=== PATIENT | female | born 1995 | race Caucasian/White ===

== ENCOUNTER → 2017-05-29 13:12 | Outpatient (CLI) | payer MEDICAID, SELFPAY ==
[2017-06-07 09:29] LABS: HPV HC, High Risk Positive (Negative); HPV Reflexed? YES, CHARGE PATIENT
== END ==
PROVIDERS: Visit Provider Obstetrics & Gynecology
DX: Z12.4 Encounter for screening for malignant neoplasm of cervix (principal)
CPT/HCPCS: 87624; 88175; G0145

== ENCOUNTER → 2017-07-10 16:47 | Outpatient (CLI) | payer MEDICAID, SELFPAY ==
--- NOTE | 2017-07-10 | IMM_PTH ---
PATIENT: BLANCA BURRELL LOC: [facility] U#:[id number] AGE/SX: 29/F ROOM: RE07/10/[address]: Dr. Cortes Eldridge MD : 1995 BED: DIS: SPEC #: [id number] RECD: 07/12/17 11:07 STATUS: PIERRE PING #: [id number] EMEKA: 07/10/17 00:[address]: Cortes Eldridge DEPT: IMMUNOHISTOCHEMISTRY RECD BY: Carli Davis ENTERED: 07/12/17 11:08 SP TYPE: IMMUNO OTHR DR: No Primary Care Phys Tissues: A - Uterine cervix, NOS B - Endocervical Procedures: p16 (initial) KI-67 (add) PHYSICIAN & INSTITUTION [place] [id number] SPECIMEN INFORMATION: Tissue Source: A ? Cervix at 12 o?clock, B - ECC Clinical Info: ASCUS, HPV-HR positive Specimen Number: [id number] A & B CPT code: 10956 x2, 68528 x2 METHODOLOGY: Deparaffinized sections of prefer/formalin-fixed tissue or PAP/DQ stained slides are incubated with monoclonal/polyclonal antibodies/oligonucleotide probes. Localization is made via biotin free immunoperoxidase method. Appropriate controls are performed and reacted as expected. Results on target cell population are indicated in the following table: RESULTS: ANTIBODY / CLONE RESULT Block A P16 (E6H4) positive, focal and patchy Ki-67 (30-9) positive, low Block B P16 (E6H4) positive, focal and patchy Ki-67 (30-9) negative These tests were developed and their performance characteristics determined by [facility]. They may not have been cleared or approved by the U.S. Food and Drug Administration. The FDA has determined that such clearance or approval is not necessary. INTERPRETATION: A. Cervix at 12 o?clock, biopsy: Focal changes suspicious for HPV cytopathic effects. B. ECC: Detached and unoriented fragments of squamous epithelium with focal minimal changes suspicious for HPV cytopathic effects. SJ:murali 07/13/17
--- NOTE | 2017-07-10 15:40 | CER_PTH ---
PATIENT: BLANCA BURRELL LOC: [facility]#:[id number] AGE/SX: 29/F ROOM: RE07/10/[address]: Dr. Cortes Eldridge MD : 1995 BED: DIS: SPEC #: [id number] RECD: 07/10/17 16:07 STATUS: PIERRE PING #: [id number] EMEKA: 07/10/17 15:[address]: Cortes Eldridge DEPT: SURGICAL PATHOLOGY RECD BY: Ramo Tolentino Tissues: A - Uterine cervix, NOS B - Endocervical Procedures: Surgery Specimen Level IV HEADER OPERATION: Colposcopy PRE-OP DIAGNOSIS: ASCUS pap, HPV-HR positive 05/29/17 TISSUE SUBMITTED: A. Cervical biopsy at 12 o?clock, B. ECC MICROSCOPIC DIAGNOSIS A. Cervix, 12 o?clock, biopsy: Focal changes suspicious for HPV cytopathic effects. Chronic inflammation and squamous metaplasia. B. ECC: Detached unoriented fragments of squamous epithelium with minimal changes suspicious for HPV cytopathic effects. Fragments of benign endocervical epithelium, blood and mucous. SJ:murali 07/12/17 COMMENT A & B. Immunohistochemistry ([id number]) for surrogate HPV marker (p16) supports the above diagnosis. MICROSCOPIC DESCRIPTION Slides are reviewed. GROSS DESCRIPTION A - Received in fixative is one container labeled with the patient's name and designated cervical biopsy at 12 o'clock. The specimen consists of multiple irregular fragments of light yoon soft tissue that in aggregate measure 0.6 x 0.6 x 0.1 cm. The specimen is totally submitted in one cassette. B - Received in fixative is one container labeled with the patient's name and designated ECC. The specimen consists of multiple irregular fragments of yoon soft tissue that in aggregate measure 1 x 0.5 x <0.1 cm. The specimen is totally submitted in one cassette. / AM:murali 07/11/17 TC:5 CPT: 50760 x2
== END ==
PROVIDERS: Visit Provider Obstetrics & Gynecology
DX: R87.610 Atypical squamous cells of undetermined significance on cytologic smear of cervix (ASC-US) (principal); R87.810 Cervical high risk human papillomavirus (HPV) DNA test positive
CPT/HCPCS: 88305; 88341; 88342

== ENCOUNTER → 2017-08-29 17:57 | Outpatient (CLI) | payer MEDICAID, SELFPAY ==
[2017-08-29 19:54] LABS: Chlamydia Trachomatis by PCR Negative (Negative); Neisserai gonorrhoeae by PCR Negative (Negative); Probe Check PASS; Sample Adequacy Control PASS; Specimen Processing Control PASS
== END ==
PROVIDERS: Visit Provider Obstetrics & Gynecology
DX: Z11.3 Encounter for screening for infections with a predominantly sexual mode of transmission (principal)
CPT/HCPCS: 87491; 87591

== ENCOUNTER 2018-03-18 22:50 | Emergency (ER) | payer SELFPAY ==
[2018-03-18 22:50] VITALS: BP 135/77; PULSE 100; RESP 16; TEMP 36.4; O2SAT 98; BMI 27.6
[2018-03-18 23:14] LABS: Red Blood Cells-Urine 0 SEEN /hpf (0-5); White Blood Cells 0 SEEN /hpf (0-5)
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
[2018-03-18 23:26] LABS: Color, Urine Yellow (Yellow); Glucose, Dipstick Normal (Normal); Ketone-Dipstick Negative (Negative); Leukocyte Esterase-Dipstick Negative /ul (Negative); Nitrite-Dipstick Negative (Negative); Occult Blood-Urine Negative /ul (Negative); Protein-Dipstick 30 mg/dl (Negative); Specific Gravity, Urine 1.025 (1.002-1.030); Urine Bilirubin Dipstick Negative (Negative); Urine Clarity Clear (Clear); Urine Urobilinogen 1 mg/dl (Normal)
[2018-03-18 23:44] LABS: Bacteria RARE /hpf (None Seen); Mucous, Urine 1+ /hpf (<or=2+); Squamous Epithelial Cells - UA 0-5 SEEN /hpf (5-10)
[2018-03-18 23:46] LABS: Internal QC Validated? YES +Cl - CLEAR BKGD
--- NOTE | 2018-03-18 23:47 | NURSING ---
dr rudd aware urine preg results
[2018-03-18 23:48] LABS: Pregnancy, Urine Positive Negative
[2018-03-18 23:59] VITALS: BP 123/78; PULSE 93; RESP 17; O2SAT 100
--- OUTSIDE RECORDS SUMMARY | 2018-04-30 17:44 | XMS RPT_ITS ---
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 Repository ED CT) NG/[id number] NO KNOWN [place] [address](SNOMED ALLERGIES Health [facility] CT) Repository Drug NO KNOWN [facility] Class/42424 ALLERGIES [address] [place] 1003(SNOMED Repository CT) ENCOUNTERS ENCOUNTERS ADMIT/DISCHARGE ACCOUNT NUMBER ADMITTING ENCOUNTER LOCATION SOURCE CLASS 03/28/2018 [id number] Ambulatory [facility] ding:LABSPEC Repository 03/27/2018/03/28/20 [id number] Emergency [address] ding:ED Repository 03/18/2018/03/19/20 [id number] Emergency [address] ding:ED Repository 01/07/2018/01/08/20 [id number] Emergency [address] Other [place] Repository 01/07/2018/01/08/20 [id number] Emergency [address] System MEDICAL Repository CENTERBuildi ng:AKEDSRoom : EDBed: 05 01/04/2018/01/06/20 [id number] MEN, Ambulatory Building:EDR [address] oom: [place] HDEPYH05Rlh: Hospital EDBED08 Repository 10/12/2017/10/13/19 [id number] ROBSON, Ambulatory Building:[place] [address] JOEY E chapis: [place] UUCAOS63Coc: Hospital EDBED12 Repository 08/29/2017 [id number] Ambulatory [facility] ding:LABSPEC Repository 07/10/2017 [id number] Ambulatory [facility] ding:LABSPEC Repository 05/29/2017 [id number] Ambulatory [facility] ding:LABSPEC Repository 04/25/2017/04/27/19 [id number] Ambulatory [address] Repository 04/20/2017/04/20/20 [id number] Misael PLUMMER [address] lding:EDRoom Hospital : Repository [id number]: EDBED07 PAYERS PAYERS ENCOUNTER GUARANTOR PAYER SUBSCRIBER SOURCE 03/28/2018 Blanca D Primary Blanca D Maryann [id number] Insurance:CARESOURCEP GrooverDOB: [facility] Number: [id number] [id number] Repository 254[address]Sjz: 330) Date:2018-03-28P O [phone] () [address]ATTN: [place] [address]BL: 03/28/2018 Secondary NOT GIVENUNK Maryann Insurance:SELF PAY [facility] Number: Effective Repository Date:2018-03-28 03/27/2018 Blanca D Primary Blanca D Maryann [id number] Insurance:CARESOURCEP [facility] Number: [id number], [place] [id number] Repository [address]Sda: (330) Date:2018-03-27P O [phone] () [address]ATTN: [place] [address]WH: 03/27/2018 Secondary NOT GIVENUNK Maryann Insurance:SELF PAY [facility] Number: Effective Repository Date:2018-03-27 03/18/2018 Blanca D Primary NOT GIVENUNK [place] [id number] Insurance:SELF PAY [facility] RDCUY[place] Number: Effective Repository [place] Date:2018-03-18 678[address]Thv: () 01/07/2018 BLANCA D Primary BLANCA D [facility] GROOVERDOB: Insurance:CARESOURCE GROOVERDOB: Health System MEDICAIDPolicy [id number] Repository [place] Number: [place] LAS, [id number] [place] [address]Kng: Date: () 01/04/2018 [facility] Insurance:CARESOURCE GROOVERDOB: [facility] CFCPolicy Number: [id number] Repository [place] [id number] 9 [place] Date:[id number] [place] [id number], [place] [address]Soa: [phone]: [phone]: (HP) [phone] (HP) (WP) 10/12/2017 BLANCA Primary [facility] GROOVERDOB: Insurance:CARESOURCE GROOVERDOB: Hospital CFCPolicy Number: [id number] Repository [place] [id number] 9 [place] [place] Date:0276-66-16[place] [address], [place] [address]Mnk: [phone]: [phone]: (HP) [phone] () (WP) 08/29/2017 Blanca D Primary Blanca D Maryann [id number] Insurance:CARESOURCEP GrooverDOB: [facility] Number: [id number] [facility] RDCUYAHOG [id number] Repository [place] Date:2017-08-29 O [address]Vko: (330) [address]ATTN: CLAIMS [phone] (HP) [place] [address]FN: 08/29/2017 Secondary NOT GIVENUNK [place] Insurance:SELF PAY [facility] Number: Effective Repository Date:2017-08-29 07/10/2017 Blanca D Primary Blanca D Maryann [id number] Insurance:CARESOURCEP GrooverDOB: [facility] Number: [id number] [facility] [id number] Repository [place] Date:2017-07-10P O [address]Buz: (330) [address]ATTN: CLAIMS [phone] (HP) [place] [address]PS: 07/10/2017 Secondary NOT GIVENUNK Maryann Insurance:SELF PAY [facility] Number: Effective Repository Date:2017-07-10 05/29/2017 Blanca D Primary Blanca D [place] [id number] Insurance:CARESOURCEP GrooverDOB: [facility] Number: [id number] [facility] [id number] [place] Date:2017-05-29P O [address]Psf: (330) [address]ATTN: CLAIMS [phone] (HP) [place] [address]XG: 05/29/2017 Secondary NOT GIVENUNK [place] Insurance:SELF PAY [facility] Number: Effective Repository Date:2017-05-29 04/20/2017 BLANCA Primary BLANCA [place] GROOVERDOB: Insurance:CARESOURCE GROOVERDOB: Hospital CFCPolicy Number: [id number] [facility] [id number] [address] [facility] Date:[id number] [address] [place], [place] [address], [place] [address]Wwe: [phone]: [phone]: (HP) [phone] () (WP)
== END 2018-03-19 | disposition home or self-care (01) ==
LOC: ED 23:20
PROVIDERS: Emergency Provider Emergency Medicine
DX: O26.891 Other specified pregnancy related conditions, first trimester (principal); Z3A.01 Less than 8 weeks gestation of pregnancy; Y04.2XXA Assault by strike against or bumped into by another person, initial encounter; Y93.89 Activity, other specified; Y92.89 Other specified places as the place of occurrence of the external cause; Y99.8 Other external cause status
CPT/HCPCS: 81001; 81025; 99282

== ENCOUNTER 2018-03-27 21:58 | Emergency (ER) | payer MEDICAID, SELFPAY ==
[2018-03-27 22:00] VITALS: BP 132/81; PULSE 96; RESP 20; TEMP 36.8; O2SAT 97; BMI 26.6
--- NOTE | 2018-03-27 22:09 | US_ITS ---
STUDY: FIRST TRIMESTER OBSTETRICAL ULTRASOUND REASON FOR EXAM: Female, 22 years old. Pelvic pain. Early . LMP: 01/28/2018 TECHNIQUE: Transvaginal TECHNICAL QUALITY: Adequate. PRIOR ULTRASOUND: None. FINDINGS: There is visualization of a single gestational sac in a normal intrauterine position. The mean sac diameter (MSD) measures 2.4 cm, indicating an estimated gestational age (EGA) of 7 weeks, 4 days. The gestational sac shape is within normal limits. There is a visualized yolk sac. The yolk sac measures 3.5 mm. The placenta is non-visualized. There is visualization of a live embryo. The crown-rump length (CRL) measures 7.4 mm, indicating an estimated gestational age (EGA) of 6 weeks, 5 days. There is demonstrated cardiac activity with a heart rate of 120 bpm. The estimated gestation age (EGA) by LMP is 8 weeks, 2 days. The estimated date of delivery (ZURDO) by LMP is 11/04/2018. The estimated gestation age (EGA) by US is 7 weeks, 1 days. The estimated date of delivery (ZURDO) by US is 11/12/2018. The uterus measures 8.8 x 7.1 x 4.6 cm. There is no demonstrated uterine fibroid. The cervix is closed. The right ovary measures 2.9 x 1.6 x 1.8 cm. There is no right ovarian cyst. There is no visualized right adnexal mass or complex lesion. The left ovary measures 3.2 x 2.8 x 2.6 cm. There is no left ovarian cyst. There is no visualized left adnexal mass or complex lesion. There is minimal fluid in the cul de sac. US/Transvaginal w/Preg US IMPRESSION: There is a single live intrauterine gestation with average ultrasound EGA of 7 weeks 1 day, and no evidence for complication. Electronically Signed: Leobardo Clay MD at 23:29 EST , Service support ,
[2018-03-27 22:37] LABS: Absolute Lymphocyte Count 3.22 X10^3/ul (0.83-4.51); Absolute Neutrophil Count 7.1 X10^3/uL (2.0-7.7); Basophil# 0.01 X10^3/uL; Basophil% 0.1 % (0-1); Eosinophils% 0.9 % (0-5); Hematocrit 37.2 % (37-47); Hemoglobin 12.7 g/dl (12.0-15.0); Lymphocyte # 3.22 X10^3/ul (4.0); Lymphocyte % 28.7 % (19-41); Mean Corp Hgb Conc 34.1 g/gl (32-36); Mean Corpuscular Hgb 30.5 pg (27.0-32.0); Mean Corpuscular Volume 89.4 fL (81-99); Mean Platelet Vol. 8.9 fl (6.2-12.0); Monocyte# 0.74 X10^3/uL; Monocyte% 6.6 % (0-10); Neutrophil # 7.12 X10^3/uL (2.7-7.7); Neutrophil % 63.5 % (47-70); Platelet Count 241 K/mm3 (150-450); RBC Distribution Width CV 12.6 % (11.6-14.6); RBC Distribution Width SD 40.6 fl (35.1-43.9); Red Blood Count 4.16 M/mm3 (4.2-5.4); White Blood Count 11.2 K/mm3 (4.4-11.0)
--- NOTE | 2018-03-27 22:38 | ED.VISSUMM ---
- ER Visit Summary Date of Service: 03/27/18 Chief Complaint: [] Pelvic pain today 6 weeks History of Present Illness: The patient is a 22 F [] she reports she is 6 weeks she was seen in the emergency department about 2 weeks ago for abdominal pain she had found to be had pelvic ultrasound that showed IUP by her history, today she was in usual state of health when she suddenly had extreme pelvic pain no vaginal bleeding no UTI symptoms normal bowel bladder habits no fever no cough no vomiting, this is her second she is She has no other complaints and assures me she did not injure her body or do anything to cause the pain Physical Examination: [] 132/8196 afebrile General, no distress resting comfortably HEENT is generally unremarkable The neck is supple no adenopathy Cardiovascular, regular rate and rhythm Lungs, clear bilateral Abdomen, soft she complains of pain to the pelvic area bilaterally there is no rebound guarding or megaly Extremities, no clubbing cyanosis or edema Neurologic, awake alert answering questions appropriately moving all 4 extremities Sudden onset of pelvic pain reportedly screening labs pelvic ultrasound The patient is feeling much better without any specific therapy other than fluids, her screening labs are generally unremarkable her UA showed no white cells urine culture sent, her pelvic ultrasound and quant hCG are pending, but she is feeling better and she wants to go home she has an appointment see her paper winder tomorrow at this time I will have the evening physicians check the ultrasound and hCG quant as long as these are within normal range and showed nothing acute such as ectopic the plan will be discharged home to follow-up with her paper winder as scheduled tomorrow Test Results: [] Emergency Department Course and Treatment: [] Treatment Plan: [] Disposition: [] Pending ultrasound and hCG quant Impression: [] Pelvic pain improved to resolve, history of This note was generated with [employer] dictation software. It may contain incorrect words, spelling, and punctuation that were not noted in review of the chart prior to signing ED Disposition - Plan for ED Patient: Chief Complaint: Referrals: Care Physician,No Primary [Primary Care Provider] -
[2018-03-27 22:40] LABS: POSITIVE COUNT NO; POSITIVE DIFFERENTIAL NO; POSITIVE MORPHOLOGY NO
[2018-03-27] MEDS: 0.9% Normal Saline 1,000 ML 1000 ML IV (22:40)
--- NOTE | 2018-03-27 22:42 | ED.DCSUM_ITS ---
- ER Visit Summary Date of Service: 03/27/18 Chief Complaint: [] Pelvic pain today 6 weeks History of Present Illness: The patient is a 22 F [] she reports she is 6 weeks she was seen in the emergency department about 2 weeks ago for abdominal pain she had found to be had pelvic ultrasound that showed IUP by her history, today she was in usual state of health when she suddenly had extreme pelvic pain no vaginal bleeding no UTI symptoms normal bowel bladder habits no fever no cough no vomiting, this is her second she is She has no other complaints and assures me she did not injure her body or do anything to cause the pain Physical Examination: [] 132/8196 afebrile General, no distress resting comfortably HEENT is generally unremarkable The neck is supple no adenopathy Cardiovascular, regular rate and rhythm Lungs, clear bilateral Abdomen, soft she complains of pain to the pelvic area bilaterally there is no rebound guarding or megaly Extremities, no clubbing cyanosis or edema Neurologic, awake alert answering questions appropriately moving all 4 extremities Sudden onset of pelvic pain reportedly screening labs pelvic ultrasound The patient is feeling much better without any specific therapy other than fluids, her screening labs are generally unremarkable her UA showed no white cells urine culture sent, her pelvic ultrasound and quant hCG are pending, but she is feeling better and she wants to go home she has an appointment see her metal room dental technician tomorrow at this time I will have the evening physicians check the ultrasound and hCG quant as long as these are within normal range and showed nothing acute such as ectopic the plan will be discharged home to follow-up with her metal room dental technician as scheduled tomorrow Test Results: [] Emergency Department Course and Treatment: [] Treatment Plan: [] Disposition: [] Pending ultrasound and hCG quant Impression: [] Pelvic pain improved to resolve, history of This note was generated with [employer] dictation software. It may contain incorrect words, spelling, and punctuation that were not noted in review of the chart prior to signing ED Disposition - Plan for ED Patient: Chief Complaint: Referrals: Care Physician,No Primary [Primary Care Provider] -
[2018-03-27 22:57] LABS: Bacteria 0 SEEN /hpf (None Seen); White Blood Cells 0 SEEN /hpf (0-5)
[2018-03-27 23:01] LABS: Color, Urine Yellow (Yellow); Glucose, Dipstick Normal (Normal); Ketone-Dipstick 5 mg/dl (Negative); Leukocyte Esterase-Dipstick Negative /ul (Negative); Nitrite-Dipstick Positive (Negative); Occult Blood-Urine Negative /ul (Negative); Protein-Dipstick 15 mg/dl (Negative); Specific Gravity, Urine 1.025 (1.002-1.030); Urine Bilirubin Dipstick Negative (Negative); Urine Clarity Clear (Clear); Urine Urobilinogen Normal (Normal)
[2018-03-27 23:07] LABS: Red Blood Cells-Urine 0-5 SEEN /hpf (0-5)
[2018-03-27 23:08] LABS: Mucous, Urine 2+ /hpf (<or=2+); Squamous Epithelial Cells - UA 0-5 SEEN /hpf (5-10)
--- NOTE | 2018-03-27 23:25 | ED.DEP ---
ED Disposition - Plan for ED Patient: Chief Complaint: Instructions: ED Abdominal Pain Rule Out Ectopic Referrals: Care Physician,No Primary [Primary Care Provider] - Additional Instructions: Follow-up with your postdoctoral fellow tomorrow return for change in symptoms
[2018-03-27 23:44] LABS: Anion Gap 6 (5-15); BUN 10 mg/dL (7-18); BUN/Creat Ratio 16.5 RATIO (10-20); Calcium,Total 8.5 mg/dL (8.5-10.1); Chloride 107 mmol/L (98-107); Creatinine, Serum 0.61 mg/dL (0.55-1.02); EST Glomerular Filtration Rate 128 mL/min (>60); Est Glom Filt Rate - Afr Amer 155 mL/min (>60); Glucose 110 mg/dL (74-106); Potassium 3.2 mmol/L (3.5-5.1); Sodium Level 139 mmol/L (136-145)
[2018-03-28 00:30] VITALS: BP 127/87; PULSE 70; RESP 18; O2SAT 97
== END 2018-03-28 00:56 | disposition home or self-care (01) ==
PROVIDERS: Emergency Medicine; Emergency Provider Emergency Medicine
DX: O26.891 Other specified pregnancy related conditions, first trimester (principal); R10.2 Pelvic and perineal pain; Z3A.01 Less than 8 weeks gestation of pregnancy
CPT/HCPCS: 76817; 80048; 81001; 84702; 85025; 86900; 87086; 87088; 96360; 96361; 99283; J7030; A4216

== ENCOUNTER → 2018-03-28 19:53 | Outpatient (CLI) | payer MEDICAID, SELFPAY ==
[2018-03-27 22:00] VITALS: BMI 26.6
[2018-03-28 21:52] LABS: Chlamydia Trachomatis by PCR Negative (Negative); Neisserai gonorrhoeae by PCR Negative (Negative); Probe Check PASS; Sample Adequacy Control PASS; Specimen Processing Control PASS
[2018-04-05 12:29] LABS: HPV HC, High Risk Positive (Negative); HPV Reflexed? YES, CHARGE PATIENT
== END ==
PROVIDERS: Referring Provider Obstetrics & Gynecology; Visit Provider Obstetrics & Gynecology
DX: Z12.4 Encounter for screening for malignant neoplasm of cervix (principal); Z11.3 Encounter for screening for infections with a predominantly sexual mode of transmission
CPT/HCPCS: 87491; 87591; 87624; 88175; G0145

== ENCOUNTER → 2018-04-10 15:22 | Outpatient (CLI) | payer MEDICAID, SELFPAY ==
[2018-03-27 22:00] VITALS: BMI 26.6
[2018-04-10 18:02] LABS: Color, Urine Yellow (Yellow); Glucose, Dipstick Normal (Normal); Ketone-Dipstick 5 mg/dl (Negative); Leukocyte Esterase-Dipstick 25 /ul (Negative); Nitrite-Dipstick Negative (Negative); Occult Blood-Urine Negative /ul (Negative); Protein-Dipstick Negative (Negative); Urine Bilirubin Dipstick Negative (Negative); Urine Clarity Clear (Clear); Urine Urobilinogen Normal (Normal)
[2018-04-10 18:10] LABS: COTININE Drug Screen Positive (<200 ng/mL)
[2018-04-10 18:13] LABS: Absolute Lymphocyte Count 1.67 X10^3/ul (0.83-4.51); Absolute Neutrophil Count 4.7 X10^3/uL (2.0-7.7); Basophil# 0.01 X10^3/uL; Basophil% 0.1 % (0-1); Eosinophil# 0.17 X10^3/uL; Eosinophils% 2.4 % (0-5); Hematocrit 39.2 % (37-47); Hemoglobin 13.4 g/dl (12.0-15.0); Lymphocyte # 1.67 X10^3/ul (4.0); Lymphocyte % 23.1 % (19-41); Mean Corp Hgb Conc 34.2 g/gl (32-36); Mean Corpuscular Hgb 30.6 pg (27.0-32.0); Mean Corpuscular Volume 89.5 fL (81-99); Mean Platelet Vol. 9.4 fl (6.2-12.0); Monocyte# 0.64 X10^3/uL; Monocyte% 8.9 % (0-10); Neutrophil # 4.73 X10^3/uL (2.7-7.7); Neutrophil % 65.4 % (47-70); Platelet Count 269 K/mm3 (150-450); RBC Distribution Width CV 12.8 % (11.6-14.6); RBC Distribution Width SD 41.5 fl (35.1-43.9); Red Blood Count 4.38 M/mm3 (4.2-5.4); White Blood Count 7.2 K/mm3 (4.4-11.0)
[2018-04-10 18:20] LABS: Amphetamine Urine VISTA NEGATIVE (<1000 ng/mL); Barbiturate Urine VISTA NEGATIVE (< 200 ng/mL); Benzodiazepine Urine VISTA NEGATIVE (< 200 ng/mL); Cocaine Urine VISTA NEGATIVE (< 300 ng/mL); Ecstacy Urine VISTA NEGATIVE (< 500 ng/mL); Methadone Urine VISTA NEGATIVE (< 300 ng/mL); PCP Urine VISTA NEGATIVE (< 25 ng/mL); POSITIVE COUNT NO; POSITIVE DIFFERENTIAL NO; POSITIVE MORPHOLOGY NO; THC Urine VISTA NEGATIVE (< 50 ng/mL); Vista UDS pH Range 6
[2018-04-10 18:29] LABS: Thyroid Stim Hormone (TSH) 0.97 uIU/mL (0.358-3.74)
[2018-04-10 19:10] LABS: HIV - WCH Non-Reactive (Nonreactive)
[2018-04-11 23:53] LABS: Prenatal RPR NONREACTIVE (NONREACTIVE)
[2018-04-12 11:56] LABS: HEPATITIS B SURFACE AG Negative (Negative); Hep C Antibodies 0.1 s/co ratio (0.0-0.9)
== END ==
PROVIDERS: Visit Provider Obstetrics & Gynecology
DX: Z34.81 Encounter for supervision of other normal pregnancy, first trimester (principal)
CPT/HCPCS: 36415; 80307; 81002; 84443; 85025; 86703; 86762; 86803; 87340

== ENCOUNTER 2018-04-29 11:40 | Emergency (ER) | payer MEDICAID, SELFPAY ==
[2018-04-29 11:41] VITALS: BP 131/79; PULSE 96; RESP 14; TEMP 36.3; O2SAT 100; BMI 26.5
[2018-04-29 13:02] LABS: Mucous, Urine 0 SEEN /hpf (<or=2+); White Blood Cells 0 SEEN /hpf (0-5)
[2018-04-29 13:03] LABS: Color, Urine Yellow (Yellow); Glucose, Dipstick Normal (Normal); Ketone-Dipstick Negative (Negative); Leukocyte Esterase-Dipstick Negative /ul (Negative); Nitrite-Dipstick Negative (Negative); Occult Blood-Urine Negative /ul (Negative); Protein-Dipstick Negative (Negative); Specific Gravity, Urine 1.015 (1.002-1.030); Urine Bilirubin Dipstick Negative (Negative); Urine Clarity Clear (Clear); Urine Urobilinogen Normal (Normal)
[2018-04-29 13:10] LABS: Bacteria RARE /hpf (None Seen); Red Blood Cells-Urine 0-5 SEEN /hpf (0-5); Squamous Epithelial Cells - UA 0-5 SEEN /hpf (5-10)
--- NOTE | 2018-04-29 13:36 | ED.DCSUM_ITS ---
- ER Visit Summary Date of Service: 04/29/18 Chief Complaint: Suprapubic discomfort History of Present Illness: The patient is a 22 F 3P1 Ab1 with having a miscarriage. Patient states she is 11 weeks . Her due date is 11/16/2018. She is currently under the care of Dr. Cortes Eldridge of [facility]. She h as had pubic abdominal discomfort. Worse with standing. Resolved supine. No dysuria. No fever. No right lower quadrant pain. She denies any vomiting, constipation or diarrhea. Last menstrual period was yesterday. She denies any vaginal bleeding or discharge. No trauma. States that she had a normal pelvic ultrasound showing a single live IUP done at the office about 4 weeks ago. Physical Examination: Well-appearing young female. No acute distress. Vital signs are stable and afebrile. HEENT exam unremarkable. Lungs clear to auscultation bilaterally. Heart regular rhythm no murmur. Abdomen soft. Nondistended. Normal bowel sounds no peritoneal signs. She is a gravid nontender uterus. Both the right upper right lower quadrant unremarkable. Abdomen is benign. Nondistended without any signs of obstruction. Patient is moving all 4 extremities. Calves are nontender without edema or cords. Neurologically she is awake alert with no focal deficits. Test Results: Urinalysis normal. Emergency Department Course and Treatment: I spoke to Dr. John Ruiz. Both he and I think her pain is consistent with round ligament pain. With a recent normal ultrasound I do not think she needs further imaging. Treatment Plan: Follow-up with Dr. Eldridge. Tylenol for pain. Return if bleeding or feel worse. Disposition: Discharge Impression: Pelvic pain secondary to round ligament pain no first trimester This note was generated with [employer] software. It may contain incorrect words, spelling, and punctuation that were not noted in review of the chart prior to signing ED Disposition - Plan for ED Patient: Chief Complaint: Referrals: Care Physician,No Primary [Primary Care Provider] -
--- NOTE | 2018-04-29 13:36 | ED.DEP ---
ED Disposition - Plan for ED Patient: Disposition: Home or Assisted Living Chief Complaint: Referrals: Cortes Eldridge MD [STAFF PHYSICIAN] - 1 Week if not improving Additional Instructions: Pain is most likely from the enlarging uterus with the . Tylenol for pain. Follow-up with Dr. Eldridge. To the ER if significantly worse pain or vaginal bleeding.
== END 2018-04-29 13:53 | disposition home or self-care (01) ==
PROVIDERS: Emergency Provider Emergency Medicine
DX: O26.891 Other specified pregnancy related conditions, first trimester (principal); R10.2 Pelvic and perineal pain; Z3A.11 11 weeks gestation of pregnancy; Z79.899 Other long term (current) drug therapy
CPT/HCPCS: 81001; 99282

== ENCOUNTER → 2018-05-07 18:06 | Outpatient (CLI) | payer MEDICAID, SELFPAY ==
[2018-04-29 11:41] VITALS: BMI 26.5
== END ==
PROVIDERS: Referring Provider Obstetrics & Gynecology; Visit Provider Obstetrics & Gynecology
DX: O23.41 Unspecified infection of urinary tract in pregnancy, first trimester (principal); Z3A.00 Weeks of gestation of pregnancy not specified
CPT/HCPCS: 87086; 87088

== ENCOUNTER → 2018-05-21 14:26 | Outpatient (CLI) | payer MEDICAID, SELFPAY ==
[2018-04-29 11:41] VITALS: BMI 26.5
[2018-05-21 17:35] LABS: Chlamydia Trachomatis by PCR Negative (Negative); Neisserai gonorrhoeae by PCR Negative (Negative); Probe Check PASS; Sample Adequacy Control PASS; Specimen Processing Control PASS
== END ==
PROVIDERS: Visit Provider Obstetrics & Gynecology
DX: Z34.82 Encounter for supervision of other normal pregnancy, second trimester (principal); Z11.3 Encounter for screening for infections with a predominantly sexual mode of transmission
CPT/HCPCS: 87491; 87591

== ENCOUNTER → 2018-08-20 | Outpatient (CLI) | payer MEDICAID, SELFPAY ==
[2018-08-20 16:07] LABS: Hematocrit 33.8 % (37-47); Hemoglobin 11.4 g/dl (12.0-15.0); Mean Corp Hgb Conc 33.7 g/gl (32-36); Mean Corpuscular Hgb 31.1 pg (27.0-32.0); Mean Corpuscular Volume 92.3 fL (81-99); Mean Platelet Vol. 9.6 fl (6.2-12.0); Platelet Count 282 K/mm3 (150-450); RBC Distribution Width CV 12.9 % (11.6-14.6); RBC Distribution Width SD 42.3 fl (35.1-43.9); Red Blood Count 3.66 M/mm3 (4.2-5.4); White Blood Count 9.8 K/mm3 (4.4-11.0)
[2018-08-20 16:09] LABS: Scan Indicated on CBC? Y/N NO
[2018-08-20 16:17] LABS: Glucose Challenge Gest 1H 50g 110 mg/dL (70-140)
== END | disposition home or self-care (01) ==
LOC: WOBLAB 14:16
PROVIDERS: Visit Provider Obstetrics & Gynecology
DX: Z34.82 Encounter for supervision of other normal pregnancy, second trimester (principal)
CPT/HCPCS: 36415; 82950; 85027; 86850

== ENCOUNTER 2018-09-17 12:25 | Outpatient (CLI) | payer MEDICAID, SELFPAY ==
[2018-09-17 13:05] VITALS: BMI 26.2
--- NOTE | 2018-09-19 19:37 | OB.TRI.NOTE ---
History of Present Illness Date of Service: 09/17/18 Was patient seen by the physician?: No Reason For Visit: VAGINAL PRESSURE Date of Service: 09/17/18 Final ZURDO: 11/16/18 Final ZURDO Source: LMP Gestational age: 31 Weeks and 3 Days History of Present Illness: 23 yo female at 31 3/7 wk EGA presents for evaluation with CC of pelvic pain, pressure, irregular UCs. H/O 39 wk after 19 hr labor, and one SAB No PTL this Allergies No Known Allergies Allergy (Verified 09/17/18 13:11) NST - FHR Rate Baby A Baseline: 130-140 avg variability. Accels to 150s Variability:: Moderate Accelerations:: 10 x 10 Decelerations:: None NST Reactive:: Yes, Appropriate for gestational age FHR Category:: Category I Uterine Activity:: UCs noted q 3-16 mins with some irritability. Impression/Plan 31 3/7 wk with CC of pelvic pressure False labor NST reactive. Home to try comfort measures: rest, tylenol, maternity support band, etc RTO as scheduled for next PNV.
== END 2018-09-17 14:10 | disposition home or self-care (01) ==
LOC: WPOUT 12:42 → WP 12:42
PROVIDERS: Referring Provider Obstetrics & Gynecology; Visit Provider Obstetrics & Gynecology
DX: O47.03 False labor before 37 completed weeks of gestation, third trimester (principal); Z3A.31 31 weeks gestation of pregnancy
CPT/HCPCS: 59025; 59050; 99218; G0378

== ENCOUNTER 2018-10-13 21:15 | Outpatient (CLI) | payer MEDICAID, SELFPAY ==
[2018-10-13 21:40] VITALS: BMI 26.6
[2018-10-13] MEDS: Acetaminophen 500 MG Tablet 1000 MG PO (22:00)
--- NOTE | 2019-02-22 00:50 | OB.TRI.PN ---
Progress Notes Date of Service: 10/13/18 Progress Note: incorrectly assigned- patient not evaluated by SM. 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
== END 2018-10-13 22:10 | disposition home or self-care (01) ==
LOC: WPOUT 21:37 → WP 10-15 07:52
PROVIDERS: Referring Provider Obstetrics & Gynecology; Visit Provider Obstetrics & Gynecology
DX: O26.90 Pregnancy related conditions, unspecified, unspecified trimester (principal)
CPT/HCPCS: 59025; 59050; 99218; G0378

== ENCOUNTER → 2018-10-17 | Outpatient (CLI) | payer MEDICAID, SELFPAY ==
[2018-10-13 21:40] VITALS: BMI 26.6
== END | disposition home or self-care (01) ==
LOC: LABSPEC 16:02
PROVIDERS: Visit Provider Obstetrics & Gynecology
DX: Z36.85 Encounter for antenatal screening for Streptococcus B (principal)
CPT/HCPCS: 87081

== ENCOUNTER 2018-11-10 12:50 | Inpatient (IN) | payer MEDICAID, SELFPAY ==
[2018-11-10 13:07] VITALS: BMI 26.4
[2018-11-10] MEDS: Lactated Ringers 1,000 ML 50 ML IV ×2 (13:20→15:49)
[2018-11-10 13:44] LABS: Absolute Lymphocyte Count 2.08 X10^3/uL (0.83-4.51); Absolute Neutrophil Count 9.2 X10^3/uL (2.0-7.7); Basophil# 0.02 X10^3/uL; Basophil% 0.2 % (0-1); Eosinophil# 0.06 X10^3/uL; Eosinophils% 0.5 % (0-5); Hematocrit 37.2 % (37-47); Hemoglobin 12.6 g/dL (12.0-15.0); Lymphocyte # 2.08 X10^3/ul (4.0); Lymphocyte % 17.1 % (19-41); Mean Corp Hgb Conc 33.9 g/dL (32-36); Mean Corpuscular Hgb 29.6 pg (27.0-32.0); Mean Corpuscular Volume 87.3 fL (81-99); Mean Platelet Vol. 10.4 fl (6.2-12.0); Monocyte# 0.76 X10^3/uL; Monocyte% 6.3 % (0-10); NRBC Flagged by Analyzer 0 % (0-5); Neutrophil # 9.19 X10^3/uL (2.7-7.7); Neutrophil % 75.5 % (47-70); Platelet Count 307 K/mm3 (150-450); RBC Distribution Width CV 13.2 % (11.6-14.6); RBC Distribution Width SD 41.2 fl (35.1-43.9); Red Blood Count 4.26 M/mm3 (4.2-5.4); White Blood Count 12.2 K/mm3 (4.4-11.0)
--- NOTE | 2018-11-10 14:30 | PCM.HP.OB ---
- Problem List (1) 39 weeks gestation of Status: Acute (2) (spontaneous vaginal delivery) Status: Acute History Date of Admission: 11/10/18 Final ZURDO: 11/16/18 Final ZURDO Source: US <20 weeks Gestational age: 39 Weeks and 1 Days History of this : This is a 23 year-old, G [], P [], at 39 weeks gestational age. Allergies No Known Allergies Allergy (Verified 10/13/18 21:40) Home Medications: Home Medications Vits [Prenatabs FA ] 1 tab PO DAILY 11/10/18 Ibuprofen [Motrin] 600 mg PO Q8H PRN PRN #30 tab 11/11/18 Senna/Docusate Sodium [Senokot-S] 1 - 2 tab PO DAILY PRN PRN #60 tab 11/11/18 Nicotine [Nicotine Patch] 1 ea TD DAILY #28 patch.td24 11/12/18 Smoking Status: Current every day smoker Alcohol: None Number of Fetus(es): 1 Heart Tracin, moderate variability, + accelerations, no decelerations TOCO Analysis: 06/02 History Past Pregnancies: Past Pregnancies Delivery Date Name GA/Weeks Outcome Route Weight Infant Gender Labor Length Anesthesia Delivery Location Provider FOB Expected Infant Delivery Method: Spontaneous Vaginal Physical Exam Vitals: Vital Signs Temp Pulse Resp BP Pulse Ox 97.5 F L 74 18 134/77 H 99 11/12/18 09:42 11/12/18 09:42 11/12/18 09:42 11/12/18 09:42 11/12/18 09:42 General: Alert, Oriented x3, Cooperative, No apparent distress HEENT: Atraumatic, Normocephalic Cardiovascular: Regular rate, Regular Rhythm, Normal S1, Normal S2 Lungs: Normal air movement Abdomen: Soft, Non Tender, Non-Distended, Gravid Extremities:: No edema Neurological: Neuro grossly intact GENERAL FOUNDRY WORKER: Normal external genitalia Estimated gestational size: Appropriate for gestational size Presentation: Cephalic Cervix Dilation (cm): 4 Station: -2 Effacement (%): 70 - per KOMAL Villegas Assessment/Plan All Active Problems 39 weeks gestation of (Acute) (spontaneous vaginal delivery) (Acute) Active labor at term (Acute) 23yo @ 39 1/7wga in active labor, Cat I FHR -Epidural per patient request -Maternal and statuses reassuring -Case management consultation - patient witnessed suicide of FOB last month.
[2018-11-10] MEDS: fentaNYL-bupivacaine (epidural) 100 ML BAG EPIDURAL (15:56)
[2018-11-10 17:24] LABS: Amphetamine Urine VISTA NEGATIVE (<1000 ng/mL); Barbiturate Urine VISTA NEGATIVE (< 200 ng/mL); Benzodiazepine Urine VISTA NEGATIVE (< 200 ng/mL); Cocaine Urine VISTA NEGATIVE (< 300 ng/mL); Ecstacy Urine VISTA NEGATIVE (< 500 ng/mL); Methadone Urine VISTA NEGATIVE (< 300 ng/mL); PCP Urine VISTA NEGATIVE (< 25 ng/mL); THC Urine VISTA NEGATIVE (< 50 ng/mL); Vista UDS pH Range 6
[2018-11-10] MEDS: Oxytocin 30 units/NS 500 ml 30 UNITS/500 ML IV.SOLN 334 UNITS IV (19:00)
[2018-11-10] MEDS: Oxytocin 30 units/NS 500 ml 30 UNITS/500 ML IV.SOLN 167 UNITS IV (19:30)
--- NOTE | 2018-11-10 19:31 | PCM.OPRPT ---
Problem List (1) 39 weeks gestation of Status: Acute (2) (spontaneous vaginal delivery) Status: Acute Report of Operation Date of Procedure: 11/10/18 Vaginal Delivery Maternal Presentation: Active Labor Amniotic Membrane Rupture Type: Artificial Rupture of Membrane time: 11/10/18 Amniotic Fluid Description: Clear Final ZURDO: 11/16/18 Final ZURDO Source: US <20 weeks Gestational age: 39 Weeks and 1 Days Date of Procedure: 11/10/18 Pre-Operative Diagnosis: 39 1/7wga, labor Post-Operative Diagnosis: 39 1/7wga, labor Surgery/ Procedure Performed: Spontaneous Vaginal Delivery Anesthesiologist: Katelyn Zhang Type of Anesthesia: Epidural Description of Procedure: Patient was FD/+ 3 on my arrival. She pushed to deliver a vigorous female infant through a single nuchal cord. The infant was placed on the maternal abdomen and further attended by nursery personnel. The cord was doubly clamped and cut at 3 minutes of life. Cord blood specimen was obtained. The placenta delivered spontaneously and appeared intact on inspection. Fundus was firm. A superficial vagina laceration was present and hemostatic. Sponge counts correct x 2. Presentation: Vertex Placental Delivery Description: Spontaneous Placenta Disposition: [facility] Cord Vessel Description: 3 Vessels Nuchal Cord Compression: Without compression Cord Gases drawn per routine: ABG, VBG Cord Entanglement: None Drain: Cordova to straight drain Estimated Blood Loss: 250 ml Infant A gender: Female (1 minute): 9 (5 minute): 10 Episiotomy Description: None Laceration: Midline, Vaginal Extension/lac, 1st degree Medications given after delivery: IV Pitocin Complications: None
[2018-11-10 22:19] LABS: Protein, Urine (Random) 35.4 mg/dL (<11.9); Protein:Creat Ratio 903 mg/g CRE (0-200)
[2018-11-10 22:28] LABS: ALB/GLOB Ratio 0.5 RATIO (0.9-2.4); AST(SGOT) 13 U/L (15-37); Alanine Aminotransfer ALT/SGPT 8 U/L (13-56); Albumin, Serum 2.1 g/dL (3.2-5.0); Alkaline Phosphatase 297 U/L (45-117); Anion Gap 9 (5-15); BUN 8 mg/dL (7-18); Calcium,Total 8.2 mg/dL (8.5-10.1); Chloride 106 mmol/L (98-107); Creatinine, Serum 0.72 mg/dL (0.55-1.02); EST Glomerular Filtration Rate 104 mL/min (>60); Est Glom Filt Rate - Afr Amer 125 mL/min (>60); Estimated Creatinine Clearance 103.14 ml/min; Globulin 4.4 g/dL (2.2-4.2); Glucose 114 mg/dL (74-106); Potassium 3.4 mmol/L (3.5-5.1); Protein, Total 6.5 g/dL (6.4-8.2); Sodium Level 136 mmol/L (136-145)
[2018-11-10 22:30] VITALS: BP 127/84; PULSE 84; RESP 18
[2018-11-10 22:34] LABS: Creatinine, Serum 0.74 mg/dL (0.55-1.02); EST Glomerular Filtration Rate 102 mL/min (>60); Est Glom Filt Rate - Afr Amer 123 mL/min (>60); Estimated Creatinine Clearance 100.36 ml/min; Uric Acid 6.5 mg/dL (2.6-6.0)
--- NOTE | 2018-11-10 23:07 | NURSING ---
Dr Josie Woodward called and updated on pts status. Lab results given including uric acid 6.5 and protein creatine ratio of 903. Pts BP's 143/92, 134/86 and 127/84. Pt denies any headache, blurred vision or epigastric pain. No new orders at this time, will continue to monitor.
[2018-11-11] VITALS (7 sets, daily range): BP systolic 128–136; BP diastolic 82–95; PULSE 59–80; RESP 16–18; TEMP 36.1–36.7; O2SAT 97–99
[2018-11-11] MEDS: Ibuprofen 600 MG Tablet PO ×3 (04:37→18:08)
--- NOTE | 2018-11-11 08:00 | PCM.PN.OB ---
Patient Problems: Active and Suspected Problems 39 weeks gestation of (Acute) (spontaneous vaginal delivery) (Acute) Subjective: no complaints. Objective: avss - Physical Exam General: Alert, Oriented x3, Cooperative HEENT: Atraumatic, Normocephalic Lungs: Clear to auscultation, Normal air movement Cardiovascular: Regular rate, Regular Rhythm Abdomen: Soft, Non Tender, Non-Distended, - - fundus firm, nontender, lochia scant Extremities: No edema, No Calf Tenderness Neurological: Neuro grossly intact Psych/Mental Status: Normal Affect, Appropriate Vital Signs Temp Pulse Resp BP Pulse Ox 97.6 F L 63 16 136/82 H 98 11/11/18 12:00 11/11/18 12:00 11/11/18 12:00 11/11/18 12:00 11/11/18 12:00 Oxygen Delivery Method Room Air Weight: 69.9 kg Body Mass Index (BMI) 26.4 Intake and Output for Last 24 Hours 11/09/18 11/10/18 11/11/18 23:59 23:59 23:59 Intake Total 1776 / 1776 Output Total 800 / 800 Balance 976 / 976 Laboratory Tests Past 24 Hrs 11/10/18 11/10/18 11/10/18 13:20 16:40 21:30 Sodium Potassium Chloride Carbon Dioxide Anion Gap BUN Creatinine 0.74 Estim Creat Clear Calc 100.36 Est GFR (MDRD) Af Amer 123 Est GFR (MDRD) Non-Af 102 BUN/Creatinine Ratio Glucose Uric Acid 6.5 H Calcium Total Bilirubin AST ALT Alkaline Phosphatase Total Protein Albumin Globulin Albumin/Globulin Ratio U Random Total Protein Urine Creatinine Protein/Creatinin Ratio Urine Opiates Screen NEGATIVE Urine Methadone Screen NEGATIVE Ur Barbiturates Screen NEGATIVE Ur Phencyclidine Scrn NEGATIVE Ur Amphetamines Screen NEGATIVE U Methamphetamin-MDMA NEGATIVE U Benzodiazepines Scrn NEGATIVE Urine Cocaine Screen NEGATIVE U Cannabinoids Screen NEGATIVE Ur Drug Screen Comment Blood Type O NEGATIVE Antibody Screen NEGATIVE 11/10/18 11/10/18 21:30 21:30 Sodium 136 Potassium 3.4 L Chloride 106 Carbon Dioxide 21.0 Anion Gap 9 BUN 8 Creatinine 0.72 Estim Creat Clear Calc 103.14 Est GFR (MDRD) Af Amer 125 Est GFR (MDRD) Non-Af 104 BUN/Creatinine Ratio 11.0 Glucose 114 H Uric Acid Calcium 8.2 L Total Bilirubin 0.40 AST 13 L ALT 8 L Alkaline Phosphatase 297 H Total Protein 6.5 Albumin 2.1 L Globulin 4.4 H Albumin/Globulin Ratio 0.5 L U Random Total Protein 35.4 H Urine Creatinine 39.20 Protein/Creatinin Ratio 903 H Urine Opiates Screen Urine Methadone Screen Ur Barbiturates Screen Ur Phencyclidine Scrn Ur Amphetamines Screen U Methamphetamin-MDMA U Benzodiazepines Scrn Urine Cocaine Screen U Cannabinoids Screen Ur Drug Screen Comment Blood Type Antibody Screen Medical Necessity - Tobacco Use Smoking Status: Current every day smoker Assessment/Plan All Active Problems 39 weeks gestation of (Acute) (spontaneous vaginal delivery) (Acute) Active labor at term (Acute) 23yo PPD#1 s/p doing well. -Nicotine patch -Rh neg, also Rh neg -Case management consult -Routine care
[2018-11-11] MEDS: Prenatal Vits Tablet 1 TABLET PO (10:42)
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
--- NOTE | 2018-11-11 14:58 | DCINST_ITS ---
Discharge Diet: No Restrictions Discharge Activity: Return to Normal Activity May resume sexual activity in: 4-6 weeks Additional Instructions: If you experience any of the following, contact your healthcare provider. * Bleeding that soaks a pad every hour for 2 hours * Fever 100.4 or higher * Unrelieved incision or abdominal pain * Swelling, redness, discharge or bleeding from your incision or episiotomy site * Your incision begins to separate * Problems urinating (including inability to urinate or burning while urinating). * Visual changes * Severe headache * Flu-like symptoms * Pain or redness in one of both of your breasts * Pain, warmth, tenderness or swelling in your legs, especially the calf area * Frequent nausea and vomiting * Symptoms of depression or anxiety If you experience any of the following, call 911 or go to the nearest Emergency Room. * Chest pain * Problems breathing * Seizure activity * Partial or complete paralysis of a body part, slurred speech, weakness or drooping of the face, or a sudden inability to walk or hold your balance Allergies/Adverse Reactions: Allergies No Known Allergies Allergy (Verified 10/13/18 21:40) Medications to take at Discharge Vits [Prenatabs FA ] 1 tab PO DAILY 11/10/18 Ibuprofen [Motrin] 600 mg PO Q8H PRN PRN #30 tab 11/11/18 Senna/Docusate Sodium [Senokot-S] 1 - 2 tab PO DAILY PRN PRN #60 tab 11/11/18 The following prescriptions were given: Ibuprofen [Motrin] 600 mg PO Q8H PRN PRN #30 tab PRN Reason: Pain Transmission Status: Pending to [facility] Senna/Docusate Sodium [Senokot-S] 1 - 2 tab PO DAILY PRN PRN #60 tab PRN Reason: Constipation Transmission Status: Pending to [facility] Please Follow Up With: Cari Warner MD When: 2 weeks Primary Care Physician: Care Physician,No Primary [Primary Care Provider] - Test Results: Test results from this visit will be discussed in further detail at your follow- up appointment, if applicable.
--- NOTE | 2018-11-11 14:58 | PCM.DCVAG ---
Discharge Diet: No Restrictions Discharge Activity: Return to Normal Activity May resume sexual activity in: 4-6 weeks Additional Instructions: If you experience any of the following, contact your healthcare provider. Bleeding that soaks a pad every hour for 2 hours Fever 100.4 or higher Unrelieved incision or abdominal pain Swelling, redness, discharge or bleeding from your incision or episiotomy site Your incision begins to separate Problems urinating (including inability to urinate or burning while urinating). Visual changes Severe headache Flu-like symptoms Pain or redness in one of both of your breasts Pain, warmth, tenderness or swelling in your legs, especially the calf area Frequent nausea and vomiting Symptoms of depression or anxiety If you experience any of the following, call 911 or go to the nearest Emergency Room. Chest pain Problems breathing Seizure activity Partial or complete paralysis of a body part, slurred speech, weakness or drooping of the face, or a sudden inability to walk or hold your balance Allergies/Adverse Reactions: Allergies No Known Allergies Allergy (Verified 10/13/18 21:40) Medications to take at Discharge Vits [Prenatabs FA ] 1 tab PO DAILY 11/10/18 Ibuprofen [Motrin] 600 mg PO Q8H PRN PRN #30 tab 11/11/18 Senna/Docusate Sodium [Senokot-S] 1 - 2 tab PO DAILY PRN PRN #60 tab 11/11/18 The following prescriptions were given: Ibuprofen [Motrin] 600 mg PO Q8H PRN PRN #30 tab PRN Reason: Pain Transmission Status: Pending to [id number] Senna/Docusate Sodium [Senokot-S] 1 - 2 tab PO DAILY PRN PRN #60 tab PRN Reason: Constipation Transmission Status: Pending to [id number] Please Follow Up With: Cari Warner MD When: 2 weeks Primary Care Physician: Care Physician,No Primary [Primary Care Provider] - Test Results: Test results from this visit will be discussed in further detail at your follow-up appointment, if applicable.
[2018-11-12 02:15] VITALS: BP 142/87; PULSE 75; RESP 20; TEMP 36.5
--- NOTE | 2018-11-12 08:46 | DCINST_ITS ---
Discharge Diet: No Restrictions Discharge Activity: Return to Normal Activity May resume sexual activity in: 4-6 weeks Additional Instructions: If you experience any of the following, contact your healthcare provider. * Bleeding that soaks a pad every hour for 2 hours * Fever 100.4 or higher * Unrelieved incision or abdominal pain * Swelling, redness, discharge or bleeding from your incision or episiotomy site * Your incision begins to separate * Problems urinating (including inability to urinate or burning while urinating). * Visual changes * Severe headache * Flu-like symptoms * Pain or redness in one of both of your breasts * Pain, warmth, tenderness or swelling in your legs, especially the calf area * Frequent nausea and vomiting * Symptoms of depression or anxiety If you experience any of the following, call 911 or go to the nearest Emergency Room. * Chest pain * Problems breathing * Seizure activity * Partial or complete paralysis of a body part, slurred speech, weakness or drooping of the face, or a sudden inability to walk or hold your balance Allergies/Adverse Reactions: Allergies No Known Allergies Allergy (Verified 10/13/18 21:40) Medications to take at Discharge Vits [Prenatabs FA ] 1 tab PO DAILY 11/10/18 Ibuprofen [Motrin] 600 mg PO Q8H PRN PRN #30 tab 11/11/18 Senna/Docusate Sodium [Senokot-S] 1 - 2 tab PO DAILY PRN PRN #60 tab 11/11/18 Nicotine [Nicotine Patch] 1 ea TD DAILY #28 patch.[email or web address] 11/12/18 The following prescriptions were given: Ibuprofen [Motrin] 600 mg PO Q8H PRN PRN #30 tab PRN Reason: Pain Transmission Status: Received by [facility] [id number] Nicotine [Nicotine Patch] 1 ea TD DAILY #28 patch.[email or web address] Transmission Status: Pending to [id number] Senna/Docusate Sodium [Senokot-S] 1 - 2 tab PO DAILY PRN PRN #60 tab PRN Reason: Constipation Transmission Status: Received by [facility] [id number] Please Follow Up With: Cari Warner MD - 1-2 weeks Please Follow Up With: Cari Warner MD - 6 weeks Primary Care Physician: Care Physician,No Primary [Primary Care Provider] - Test Results: Test results from this visit will be discussed in further detail at your follow- up appointment, if applicable.
--- NOTE | 2018-11-12 08:46 | PCM.DCVAG ---
Discharge Diet: No Restrictions Discharge Activity: Return to Normal Activity May resume sexual activity in: 4-6 weeks Additional Instructions: If you experience any of the following, contact your healthcare provider. Bleeding that soaks a pad every hour for 2 hours Fever 100.4 or higher Unrelieved incision or abdominal pain Swelling, redness, discharge or bleeding from your incision or episiotomy site Your incision begins to separate Problems urinating (including inability to urinate or burning while urinating). Visual changes Severe headache Flu-like symptoms Pain or redness in one of both of your breasts Pain, warmth, tenderness or swelling in your legs, especially the calf area Frequent nausea and vomiting Symptoms of depression or anxiety If you experience any of the following, call 911 or go to the nearest Emergency Room. Chest pain Problems breathing Seizure activity Partial or complete paralysis of a body part, slurred speech, weakness or drooping of the face, or a sudden inability to walk or hold your balance Allergies/Adverse Reactions: Allergies No Known Allergies Allergy (Verified 10/13/18 21:40) Medications to take at Discharge Vits [Prenatabs FA ] 1 tab PO DAILY 11/10/18 Ibuprofen [Motrin] 600 mg PO Q8H PRN PRN #30 tab 11/11/18 Senna/Docusate Sodium [Senokot-S] 1 - 2 tab PO DAILY PRN PRN #60 tab 11/11/18 Nicotine [Nicotine Patch] 1 ea TD DAILY #28 patch.[email or web address] 11/12/18 The following prescriptions were given: Ibuprofen [Motrin] 600 mg PO Q8H PRN PRN #30 tab PRN Reason: Pain Transmission Status: Received by [facility] [id number] Nicotine [Nicotine Patch] 1 ea TD DAILY #28 [email or web address] Transmission Status: Pending to [facility] 1811 Senna/Docusate Sodium [Senokot-S] 1 - 2 tab PO DAILY PRN PRN #60 tab PRN Reason: Constipation Transmission Status: Received by [facility] [id number] Please Follow Up With: Cari Warner MD - 1-2 weeks Please Follow Up With: Cari Warner MD - 6 weeks Primary Care Physician: Care Physician,No Primary [Primary Care Provider] - Test Results: Test results from this visit will be discussed in further detail at your follow-up appointment, if applicable.
[2018-11-12 09:42] VITALS: BP 134/77; PULSE 74; RESP 18; TEMP 36.4; O2SAT 99
== END 2018-11-12 12:00 | disposition home or self-care (01) | DRG 560 ==
PROVIDERS: Admitting Provider Obstetrics & Gynecology; Referring Provider Obstetrics & Gynecology; Visit Provider Obstetrics & Gynecology
DX: O69.81X0 Labor and delivery complicated by cord around neck, without compression, not applicable or unspecified (principal); O71.4 Obstetric high vaginal laceration alone; O99.334 Smoking (tobacco) complicating childbirth; Z3A.39 39 weeks gestation of pregnancy; Z37.0 Single live birth
CPT/HCPCS: 59025; 59050; 80053; 80307; 82565; 82570; 84156; 84550; 85025; 86850; 86900; 99218; J7120; G0378

== ENCOUNTER → 2018-12-19 | Outpatient (CLI) | payer MEDICAID, SELFPAY ==
[2018-12-26 12:54] LABS: HPV APTIMA, High Risk Positive (Negative)
== END | disposition home or self-care (01) ==
LOC: LABSPEC 12-20 09:13
PROVIDERS: Visit Provider Obstetrics & Gynecology
DX: R87.610 Atypical squamous cells of undetermined significance on cytologic smear of cervix (ASC-US) (principal); R87.810 Cervical high risk human papillomavirus (HPV) DNA test positive
CPT/HCPCS: 88175; G0145

== ENCOUNTER → 2019-10-09 18:11 | Outpatient (CLI) | payer MEDICAID, SELFPAY ==
[2019-10-09 18:28] LABS: Absolute Lymphocyte Count 2.14 X10^3/uL (0.83-4.51); Basophil# 0.02 X10^3/uL; Basophil% 0.2 % (0-1); Eosinophil# 0.17 X10^3/uL; Eosinophils% 1.5 % (0-5); Hematocrit 31.6 % (37-47); Hemoglobin 10.5 g/dL (12.0-15.0); Lymphocyte # 2.14 X10^3/ul (4.0); Lymphocyte % 19.4 % (19-41); Mean Corp Hgb Conc 33.2 g/dL (32-36); Mean Corpuscular Hgb 31.4 pg (27.0-32.0); Mean Corpuscular Volume 94.6 fL (81-99); Mean Platelet Vol. 9.4 fl (6.2-12.0); Monocyte% 5.4 % (0-10); NRBC Flagged by Analyzer 0 % (0-5); Neutrophil # 8.03 X10^3/uL (2.7-7.7); Platelet Count 310 K/mm3 (150-450); RBC Distribution Width CV 13.2 % (11.6-14.6); RBC Distribution Width SD 45.3 fl (35.1-43.9); Red Blood Count 3.34 M/mm3 (4.2-5.4)
[2019-10-09 18:34] LABS: Color, Urine Yellow (Yellow); Glucose, Dipstick Normal (Normal); Ketone-Dipstick Negative (Negative); Leukocyte Esterase-Dipstick Negative /ul (Negative); Nitrite-Dipstick Negative (Negative); Occult Blood-Urine Negative /ul (Negative); Protein-Dipstick Negative (Negative); Specific Gravity, Urine 1.005 (1.002-1.030); Urine Bilirubin Dipstick Negative (Negative); Urine Clarity Clear (Clear); Urine Urobilinogen Normal (Normal)
[2019-10-09 18:56] LABS: Amphetamine Urine VISTA NEGATIVE (<1000 ng/mL); Barbiturate Urine VISTA NEGATIVE (< 200 ng/mL); Benzodiazepine Urine VISTA NEGATIVE (< 200 ng/mL); Cocaine Urine VISTA NEGATIVE (< 300 ng/mL); Ecstacy Urine VISTA NEGATIVE (< 500 ng/mL); Methadone Urine VISTA NEGATIVE (< 300 ng/mL); PCP Urine VISTA NEGATIVE (< 25 ng/mL); THC Urine VISTA NEGATIVE (< 50 ng/mL); Vista UDS pH Range 6
[2019-10-10 10:34] LABS: HIV - WCH Non-Reactive (Nonreactive); Hepatitis B Surface Antigen Non-Reactive (Nonreactive); Hepatitis C Antibody Non-Reactive (Nonreactive); Rubella IgG 21.9 IU/mL
[2019-10-16 02:00] LABS: Prenatal RPR NONREACTIVE (NONREACTIVE)
== END ==
PROVIDERS: Visit Provider Obstetrics & Gynecology
DX: Z34.82 Encounter for supervision of other normal pregnancy, second trimester (principal)
CPT/HCPCS: 80307; 81002; 84443; 85025; 86703; 86762; 86803; 87340

== ENCOUNTER → 2019-11-06 | Outpatient (CLI) | payer MEDICAID, SELFPAY ==
[2019-11-06 13:55] LABS: Glucose Challenge Gest 1H 50g 123 mg/dL (70-140); Hematocrit 32.4 % (37-47); Hemoglobin 10.8 g/dL (12.0-15.0); Mean Corp Hgb Conc 33.3 g/dL (32-36); Mean Corpuscular Hgb 31.4 pg (27.0-32.0); Mean Corpuscular Volume 94.2 fL (81-99); Mean Platelet Vol. 9.5 fl (6.2-12.0); Platelet Count 316 K/mm3 (150-450); RBC Distribution Width CV 12.3 % (11.6-14.6); RBC Distribution Width SD 42.4 fl (35.1-43.9); Red Blood Count 3.44 M/mm3 (4.2-5.4); White Blood Count 10.5 K/mm3 (4.4-11.0)
== END | disposition home or self-care (01) ==
LOC: WOBLAB 11:52
PROVIDERS: Visit Provider Obstetrics & Gynecology
DX: Z34.82 Encounter for supervision of other normal pregnancy, second trimester (principal)
CPT/HCPCS: 36415; 82950; 85027; 86850

== ENCOUNTER 2019-12-27 13:40 | Inpatient (IN) | payer MEDICAID, SELFPAY ==
[2019-12-27] VITALS (37 sets, daily range): BP systolic 106–139; BP diastolic 55–85; PULSE 91–123; TEMP 36.1–37.3; O2SAT 96–100; BMI 28.9
[2019-12-27 13:27] LABS: ROM Internal Control Test YES-OK TO RESULT pt. (Internal QC); ROM Patient Test POSITIVE (Negative)
[2019-12-27] MEDS: Lactated Ringers 1,000 ML 50 ML IV (14:15)
[2019-12-27 14:31] LABS: Absolute Lymphocyte Count 1.91 X10^3/uL (0.83-4.51); Absolute Neutrophil Count 9.1 X10^3/uL (2.0-7.7); Basophil# 0.02 X10^3/uL; Basophil% 0.2 % (0-1); Eosinophil# 0.14 X10^3/uL; Eosinophils% 1.2 % (0-5); Hematocrit 30.2 % (37-47); Lymphocyte # 1.91 X10^3/ul (4.0); Lymphocyte % 15.7 % (19-41); Mean Corp Hgb Conc 33.1 g/dL (32-36); Mean Corpuscular Hgb 29.2 pg (27.0-32.0); Mean Platelet Vol. 9.6 fl (6.2-12.0); Monocyte# 0.93 X10^3/uL; Monocyte% 7.6 % (0-10); NRBC Flagged by Analyzer 0 % (0-5); Neutrophil # 9.07 X10^3/uL (2.7-7.7); Neutrophil % 74.5 % (47-70); Platelet Count 285 K/mm3 (150-450); RBC Distribution Width CV 12.2 % (11.6-14.6); RBC Distribution Width SD 39.3 fl (35.1-43.9); Red Blood Count 3.43 M/mm3 (4.2-5.4); White Blood Count 12.2 K/mm3 (4.4-11.0)
[2019-12-27] MEDS: Betamethasone/Betamethasone 30 MG/5 ML Vial 12 MG IM (14:43)
--- NOTE | 2019-12-27 15:41 | HP.PCM_ITS ---
- Problem List (1) 36 weeks gestation of Status: Acute (2) PROM (premature rupture of membranes) Status: Acute Qualifiers: PROM onset of labor timing: unspecified duration between rupture of membranes and onset of labor PROM gestational age: -third trimester Qualified Code(s): O42.913 - premature rupture of membranes, unspecified as to length of time between rupture and onset of labor, third trimester History Date of Admission: 12/27/19 Final ZURDO: 01/24/20 Final ZURDO Source: US <20 weeks Gestational age: 36 Weeks and 0 Days History of this : This is a 24 year-old, G [4], P [2012], at 36 weeks gestational age presents with leaking of clear fluid since approximately midnight this morning. She reports having to change her underwear a few times early this morning and called the office nurse who advised she go to the hospital. She feels well and without other complaints. Reports mild irregular contractions. No vaginal bleeding. + FM. Of note, pt had COVID testing approximately 10 days ago at work that was negative following exposure to a resident that was formerly positive - however, Preeti notes that the resident had had negative testing x 2 prior to her testing. She has since not returned to work and has been isolating at home. Issues: -hx depression/anxiety -Father of her 1 year old daughter committed suicide in front of her prior to her in 2018 -Tobacco use in -PAP with Positive HRHPV Medical History: Medical History (Last Updated 12/27/19 @ 15:[address] Carmelita Woodward MD) Anxiety F41.9 Depression F32.9 Surgical History: Surgical History (Last Updated 12/27/19 @ 15:[address] Camrelita Woodward MD) H/O dilation and curettage Z98.890 06/2015 for first trimester SAB Allergies No Known Allergies Allergy (Verified 12/27/19 13:03) Home Medications: Home Medications Colace 100 mg PO DAILY PRN 12/27/19 Alcohol: None Number of Fetus(es): 1 NST - FHR Rate Baby A Baseline: 140 Variability:: Moderate Accelerations:: 15 x 15 Decelerations:: None NST Reactive:: Yes FHR Category:: Category I Uterine Activity:: 0-2/10 min History Past Pregnancies: Past Pregnancies Delivery Date Name GA/ Weeks Outcome Route Wt Infant Sex Labor Length Anesthesia Delivery Location Provider 01/04/2015 Manjit 38.4 Living 6lb8oz M 19 Epidural [facility] 06/21/2016 8 SAB Suction D&C General [facility] 11/10/2018 Elizabeth 39.1 Living 7lb9oz F 4 Epidural [facility] Josie Woodward Labs: Mom's Problem List Problem Status Onset Code 36 weeks gestation of Acute Z3A.36 PROM (premature rupture of membranes) Acute O42.90 Mom's Labs & Results 12/27/19 12/27/19 12/27/19 13:10 14:15 14:15 WBC 12.2 H RBC 3.43 L Hgb 10.0 L Hct 30.2 L MCV 88.0 MCH 29.2 MCHC 33.1 RDW Std Deviation 39.3 RDW Coeff of Evelyn 12.2 Plt Count 285 MPV 9.6 Immature Gran % (Auto) 0.800 Neut % (Auto) 74.5 H Lymph % (Auto) 15.7 L [place] % (Auto) 7.6 Eos % (Auto) 1.2 Baso % (Auto) 0.2 Absolute Neuts (auto) 9.1 H Absolute Lymphs (auto) 1.91 Nucleated RBC % 0 Vag Amniotic Fld Detect POSITIVE H Chlam trachomat DNA PCR N.gonorrhoeae DNA (PCR) Group B Strep DNA Specimen Comment Blood Type O NEGATIVE Antibody Screen NEGATIVE 12/27/19 12/27/19 14:20 14:47 WBC RBC Hgb Hct MCV MCH MCHC RDW Std Deviation RDW Coeff of Evelyn Plt Count MPV Immature Gran % (Auto) Neut % (Auto) Lymph % (Auto) [place] % (Auto) Eos % (Auto) Baso % (Auto) Absolute Neuts (auto) Absolute Lymphs (auto) Nucleated RBC % Vag Amniotic Fld Detect Chlam trachomat DNA PCR Pending N.gonorrhoeae DNA (PCR) Pending Group B Strep DNA Pending Specimen Comment Pending Blood Type Antibody Screen Course Did the patient receive Yes care? Labs Blood Type: O RH: NEGATIVE RPR/VDRL/Syphilis Nonreactive Rubella status Immune HbSAg Negative Date Done: 10/09/19 HIV/AIDS Non-Reactive Group B Strep: Collected on Admission Current Obstetrical History Gestational Diabetes No Incompetent Cervix No Infertility No IUGR No Macrosomia No Hypertension/Pre-eclampsia No Placenta Previa/Abruption No PTL/PROM No Uterine anomaly No Oligohydramnios No Polyhydramnios No Multiple gestation No Past Medical History Asthma No Diabetes No Hypertension No Heart disease No Mitral valve prolapse No Neurologic/Seizure disorder/ No Migraines Kidney disease No Liver disease No Varicosities No Clotting disorders/Hx of DVT No Thyroid Dysfunction No Other medical diseases No Psychiatric disorders Yes: anxiety, depression Major trauma No Abnormal PAP smear No Sleep apnea No Mammogram in the last 2 years No Social History Marital Status: SINGLE Alleged father Júnior Hx Smoking Yes Smoking Status Light Smoker (<10/day) Expected Infant Delivery Method: Spontaneous Vaginal Number of Visits: 6 Review of Systems Constitutional: Denies: Chills, Fever, Fatigue Eyes: Denies: Vision Change HEENT: Denies: Head Aches, Sore Throat Cardiovascular: Denies: Chest Pain Respiratory: Denies: Cough, Shortness of Breath Gastrointestinal: Denies: Abdominal Pain, Nausea, Vomiting Gynecological: Denies: Vaginal bleeding Psychiatric: Denies: Depression Physical Exam Vitals: Vital Signs Temp Pulse BP Pulse Ox 99.1 F 111 H 114/79 99 12/27/19 14:25 12/27/19 14:26 12/27/19 14:26 12/27/19 14:25 General: Alert, Oriented x3, Cooperative, No apparent distress HEENT: Atraumatic, Normocephalic Cardiovascular: Regular rate, Regular Rhythm, Normal S1, Normal S2 Lungs: Clear to auscultation, Normal air movement Abdomen: Soft, Non Tender, Non-Distended, Gravid Extremities:: No edema Neurological: Neuro grossly intact Estimated gestational size: Appropriate for gestational size Presentation: - - on US, OP with back maternal right Assessment/Plan All Active Problems (Last Updated 12/27/19 @ 15:[address] Carmelita Woodward MD) 36 weeks gestation of (Acute) PROM (premature rupture of membranes) (Acute) This is a 24 year-old, G [4], P [2012], at 36 weeks gestational age with PROM, no evidence of infection with Cat I FHR -GBS unknown - Ampicillin, culture pending -Mild anemia - Fe supplementation -Start pitocin given no spontaneous increase in contractions since rupture of membranes -Betamethasone given, will give second dose tomorrow afternoon if not delivered -Maternal and statuses overall reassuring -Consent reviewed. Patient and family given opportunity to ask questions and questions answered to their satisfaction.
[2019-12-27] MEDS: Mag Hydrox/Al Hydrox/Simeth 30 ML UDC PO (16:01)
[2019-12-27 16:14] LABS: Group B Strep DNA By PCR Negative (Negative); Internal Control PASS; Probe Check PASS; Specimen Processing Control PASS
[2019-12-27] MEDS: Oxytocin 30 units/NS 500 ml 30 UNITS/500 ML IV.SOLN IV (16:40)
[2019-12-27 16:57] LABS: Chlamydia Trachomatis by PCR Negative (Negative); Neisserai gonorrhoeae by PCR Negative (Negative); Probe Check PASS; Sample Adequacy Control PASS; Specimen Processing Control PASS
[2019-12-27] MEDS: Lactated Ringers 500 ML 999 ML IV (21:02)
[2019-12-27] MEDS: fentaNYL-bupivacaine (epidural) 100 ML BAG EPIDURAL (21:59)
--- NOTE | 2019-12-27 22:53 | PCM.PN.BLA ---
Progress Note LABOR PROGRESS NOTE Reports some pelvic pressure intermittently. AVSS GEN - NAD, AAO x 3 FHR 120 moderate variability, + accelerations, no decelerations TOCO unable to trace as pt is on side, previously q1-4 minutes SVE deferred, recent RN exam /-2 and soft approximately 30 minutes ago A/P: 24yo @ 36wga with PROM, Cat I FHR in active labor on pitocin -Continue pitocin as tolerated by mother and fetus -Maternal and statuses reassuring STROKE Vital Signs/Narrative: Vital Signs Temp Pulse BP Pulse Ox 12/27/19 22:49 108 H 98 12/27/19 22:44 92 100 12/27/19 22:39 91 99 12/27/19 22:34 102 H 99 12/27/19 22:33 93 120/74 12/27/19 22:30 92 122/82 H 12/27/19 22:29 100 12/27/19 22:24 92 131/82 H 100 12/27/19 22:20 103 H 131/81 H 12/27/19 22:19 102 H 100 12/27/19 22:16 113 H 112/59 L 12/27/19 22:14 120 H 100 12/27/19 22:09 123 H 109/58 L 97 12/27/19 22:04 121 H 109/57 L 97 12/27/19 22:01 122 H 113/55 L 12/27/19 21:59 121 H 115/56 L 97 12/27/19 21:53 107 H 124/83 H 98 12/27/19 21:49 99 130/85 H 12/27/19 21:48 98 100 12/27/19 21:44 105 H 139/74 H 12/27/19 21:43 99 12/27/19 21:38 101 H 133/82 H 100 12/27/19 21:33 99 96 12/27/19 21:11 95 123/80 H 98 12/27/19 21:10 97.4 F L 12/27/19 20:17 97.4 F L 94 116/66 98 12/27/19 19:40 98.0 F 95 126/76 H 98 12/27/19 19:35 105 H 98 12/27/19 19:30 115 H 98
[2019-12-28] VITALS (18 sets, daily range): BP systolic 113–126; BP diastolic 62–83; PULSE 68–126; RESP 16; TEMP 36.3–37.1; O2SAT 96–99
[2019-12-28] MEDS: Lactated Ringers 1,000 ML 200 ML IV (00:34)
[2019-12-28] MEDS: Oxytocin 30 units/NS 500 ml 30 UNITS/500 ML IV.SOLN 334 UNITS IV (01:52)
--- NOTE | 2019-12-28 02:04 | PCM.OPRPT ---
Problem List (1) 36 weeks gestation of Status: Acute (2) PROM (premature rupture of membranes) Status: Acute Qualifiers: PROM onset of labor timing: unspecified duration between rupture of membranes and onset of labor PROM gestational age: -third trimester Qualified Code(s): O42.913 - premature rupture of membranes, unspecified as to length of time between rupture and onset of labor, third trimester (3) (spontaneous vaginal delivery) Status: Acute Vaginal Delivery Maternal Presentation: Spontaneous Rupture of Membranes Method of Induction: Pitocin Amniotic Membrane Rupture Type: Spontaneous at home Rupture of Membrane time: 12/27/19 0030h Amniotic Fluid Description: Clear Final ZURDO: 01/24/20 Final ZURDO Source: US <20 weeks Gestational age: 36 Weeks and 1 Days Date of Procedure: 12/28/19 Pre-Operative Diagnosis: 36 1/7wga, PPROM Post-Operative Diagnosis: 36 1/7wga, PPROM Surgery/ Procedure Performed: Spontaneous Vaginal Delivery Anesthesiologist: Katelyn Zhang Type of Anesthesia: Epidural Description of Procedure: Patient was FD/+2 on my arrival with Cat I FHR with late decelerations having resolved. She pushed with head delivered in BRO. A nuchal cord x 1 was reduced and mouth and nares were bulb suctioned at the perineum. The shoulders delivered with ease revealing a vigorous female infant. The was placed on the maternal abdomen and further attended by nursery personnel. The cord was doubly clamped and cut. Cord blood specimen was obtained. The placenta delivered spontaneous and appeared intact on inspection with the presence of an accessory lobe noted consistent with prior US report. The perineum was intact. Sponge count correct x 2. Presentation: Vertex Placental Delivery Description: Spontaneous Placenta Disposition: [facility] Cord Vessel Description: 3 Vessels Nuchal Cord Compression: Without compression Cord Entanglement: Around neck x 1, loose Drain: Cordova to straight drain Estimated Blood Loss: 200 ml (1 minute): 9 (5 minute): 10 Episiotomy Description: None Laceration: None Medications given after delivery: IV Pitocin Complications: None
[2019-12-28] MEDS: Methylergonovine 0.2 MG/ML Ampul IM (02:36)
[2019-12-28] MEDS: 0.9% Saline Lock 10 ML Syringe IV (04:23)
[2019-12-28] MEDS: Ibuprofen 600 MG Tablet PO ×3 (05:04→20:40)
[2019-12-28] MEDS: Acetaminophen 325 MG Tablet PO ×2 (09:09→17:42)
[2019-12-28] MEDS: Senna/Docusate Sodium 1 Tablet PO (13:39)
[2019-12-28] MEDS: Acetaminophen 500 MG Tablet 1000 MG PO (23:39)
[2019-12-29 02:00] VITALS: BP 134/87; PULSE 84; RESP 16; TEMP 36.7
[2019-12-29] MEDS: Senna/Docusate Sodium 1 Tablet PO (08:50)
[2019-12-29] MEDS: Ibuprofen 600 MG Tablet PO (08:53)
[2019-12-29 08:55] VITALS: BP 112/65; PULSE 65; RESP 16; TEMP 36.8
--- NOTE | 2019-12-29 10:24 | DCINST_ITS ---
Discharge Diet: No Restrictions Discharge Activity: Return to Normal Activity, May Shower, May Take a Tub Bath May resume sexual activity in: 4-6 weeks Additional Instructions: If you experience any of the following, contact your healthcare provider. * Bleeding that soaks a pad every hour for 2 hours * Fever 100.4 or higher * Unrelieved incision or abdominal pain * Swelling, redness, discharge or bleeding from your incision or episiotomy site * Your incision begins to separate * Problems urinating (including inability to urinate or burning while urinating). * Visual changes * Severe headache * Flu-like symptoms * Pain or redness in one of both of your breasts * Pain, warmth, tenderness or swelling in your legs, especially the calf area * Frequent nausea and vomiting * Symptoms of depression or anxiety If you experience any of the following, call 911 or go to the nearest Emergency Room. * Chest pain * Problems breathing * Seizure activity * Partial or complete paralysis of a body part, slurred speech, weakness or clarice oping of the face, or a sudden inability to walk or hold your balance Allergies/Adverse Reactions: Allergies No Known Allergies Allergy (Verified 12/27/19 13:03) Medications to take at Discharge Colace 100 mg PO DAILY PRN 12/27/19 Ibuprofen [Motrin] 600 mg PO Q8H PRN PRN #30 tab 12/29/19 No122/Iron/Folic Acid [ Multi Tablet] 1 ea PO DAILY #60 tab 12/29/19 The following prescriptions were given: Ibuprofen [Motrin] 600 mg PO Q8H PRN PRN #30 tab PRN Reason: Pain Score 1-10/10 Transmission Status: Pending to [id number] No122/Iron/Folic Acid [ Multi Tablet] 1 ea PO DAILY #60 tab Transmission Status: Pending to [facility] [id number] Please Follow Up With: Lillian Gomez CNM - telehealth visit When: 2-3 weeks Please Follow Up With: Lillian Gomez CNM - visit When: 6 weeks Primary Care Physician: Care Physician,No Primary [Primary Care Provider] - Test Results: Test results from this visit will be discussed in further detail at your follow- up appointment, if applicable.
--- NOTE | 2019-12-29 10:24 | PCM.DCVAG ---
Discharge Diet: No Restrictions Discharge Activity: Return to Normal Activity, May Shower, May Take a Tub Bath May resume sexual activity in: 4-6 weeks Additional Instructions: If you experience any of the following, contact your healthcare provider. Bleeding that soaks a pad every hour for 2 hours Fever 100.4 or higher Unrelieved incision or abdominal pain Swelling, redness, discharge or bleeding from your incision or episiotomy site Your incision begins to separate Problems urinating (including inability to urinate or burning while urinating). Visual changes Severe headache Flu-like symptoms Pain or redness in one of both of your breasts Pain, warmth, tenderness or swelling in your legs, especially the calf area Frequent nausea and vomiting Symptoms of depression or anxiety If you experience any of the following, call 911 or go to the nearest Emergency Room. Chest pain Problems breathing Seizure activity Partial or complete paralysis of a body part, slurred speech, weakness or drooping of the face, or a sudden inability to walk or hold your balance Allergies/Adverse Reactions: Allergies No Known Allergies Allergy (Verified 12/27/19 13:03) Medications to take at Discharge Colace 100 mg PO DAILY PRN 12/27/19 Ibuprofen [Motrin] 600 mg PO Q8H PRN PRN #30 tab 12/29/19 No122/Iron/Folic Acid [ Multi Tablet] 1 ea PO DAILY #60 tab 12/29/19 The following prescriptions were given: Ibuprofen [Motrin] 600 mg PO Q8H PRN PRN #30 tab PRN Reason: Pain Score 1-10/10 Transmission Status: Pending to [facility] 1811 No122/Iron/Folic Acid [ Multi Tablet] 1 ea PO DAILY #60 tab Transmission Status: Pending to [facility] 181 Please Follow Up With: Lillian Gomez CNM - telehealth visit When: 2-3 weeks Please Follow Up With: Lillian Gomez CNM - visit When: 6 weeks Primary Care Physician: Care Physician,No Primary [Primary Care Provider] - Test Results: Test results from this visit will be discussed in further detail at your follow-up appointment, if applicable.
--- NOTE | 2019-12-29 10:37 | PCM.PN.OB ---
Patient Problems: Active and Suspected Problems (Last Updated 12/27/19 @ 15:[address] Carmelita Woodward MD) (spontaneous vaginal delivery) (Acute) 36 weeks gestation of (Acute) PROM (premature rupture of membranes) (Acute) Subjective: Preeti is doing well. Reports severe back spasm last night when she went for a walk, but resolved quickly with no recurrence. Denies heavy lochia. Has mild uterine cramping with nursing. is going well. Her mood is doing well today. Objective: AVSS - Physical Exam Vitals/I&O's: Vital Signs Temp Pulse Resp BP Pulse Ox 98.3 F 65 16 112/65 98 12/29/19 08:55 12/29/19 08:55 12/29/19 08:55 12/29/19 08:55 12/28/19 03:48 Oxygen Delivery Method Room Air Weight: 71.668 kg Body Mass Index (BMI) 28.9 Intake and Output for Last 24 Hours 12/27/19 12/28/19 12/29/19 23:59 23:59 23:59 Intake Total 1526.97 / 1526.97 1038.66 / 1038.66 Output Total 600 / 600 1700 / 1700 Balance 926.97 / 926.97 -661.34 / -661.34 General: Alert, Oriented x3, Cooperative, No apparent distress HEENT: Atraumatic, Normocephalic Lungs: Normal air movement Cardiovascular: Regular rate, Regular Rhythm, Normal S1, Normal S2 Abdomen: Soft, Non Tender, Non-Distended, - - Fundus firm and 1 FW above umbilicus and nontender, lochia moderate Extremities: No edema, No Calf Tenderness Neurological: Neuro grossly intact Psych/Mental Status: Normal Affect, Appropriate, Alert and oriented to time, place, person, mood and affect Current Medications Acetaminophen (Tylenol) 325 - 650 mg PO Q4H PRN PRN PRN Reason: Pain Score 1-3/10 Last Admin: 12/28/19 17:42 Dose: 650 mg Documented by: Acetaminophen (Tylenol) 1,000 mg PO Q8H PRN PRN PRN Reason: Pain Score 1-3/10 Last Admin: 12/28/19 23:39 Dose: 1,000 mg Documented by: Bisacodyl (Dulcolax) 10 mg RECTAL UD PRN PRN Reason: If no BM Dibucaine (Dibucaine) 1 applic TOPICAL TID PRN PRN; Protocol PRN Reason: Discomfort Hydrocortisone (Hytone) 1 applic TOPICAL TID PRN PRN; Protocol PRN Reason: Discomfort Ibuprofen (Motrin) 600 mg PO Q6H PRN PRN PRN Reason: Pain Score 1-3/10 Last Admin: 12/29/19 08:53 Dose: 600 mg Documented by: Methylergonovine Maleate (Methergine) 0.2 mg IM X1 PRN PRN Reason: Excess bleeding/uterine atony Last Admin: 12/28/19 02:36 Dose: 0.2 mg Documented by: Ondansetron HCl (Zofran) 4 mg IV Q4H PRN PRN PRN Reason: NAUSEA Senna/Docusate Sodium (Senokot-S, Luli-Colace) 1 - 2 tablet PO DAILY PRN PRN PRN Reason: Constipation Last Admin: 12/29/19 08:50 Dose: 2 tablet Documented by: Simethicone (Mylicon) 80 mg PO PCHS PRN PRN Reason: Indigestion/Stomach pain Last Admin: 12/28/19 09:09 Dose: 80 mg Documented by: Sodium Chloride () 5 - 15 ml IV UD PRN PRN Reason: SALINE FLUSH Last Admin: 12/28/19 04:23 Dose: 10 ml Documented by: Assessment/Plan All Active Problems (Last Updated 12/27/19 @ 15:[address] Carmelita Woodward MD) (spontaneous vaginal delivery) (Acute) 36 weeks gestation of (Acute) PROM (premature rupture of membranes) (Acute) This is a 24 year-old, G [4], P2112 PPD#1 s/p doing well. -Rh neg - infant A pos - Rhogam ordered - -Routine care -Case management consultation pending -Anticipate d/c home later today
== END 2019-12-29 12:00 | disposition home or self-care (01) | DRG 560 ==
LOC: WPOUT 13:49 → WP 13:50
PROVIDERS: Admitting Provider Obstetrics & Gynecology; Visit Provider Obstetrics & Gynecology
DX: O42.113 Preterm premature rupture of membranes, onset of labor more than 24 hours following rupture, third trimester (principal); O69.81X0 Labor and delivery complicated by cord around neck, without compression, not applicable or unspecified; O99.334 Smoking (tobacco) complicating childbirth; O99.02 Anemia complicating childbirth; D64.9 Anemia, unspecified; O76 Abnormality in fetal heart rate and rhythm complicating labor and delivery; Z3A.36 36 weeks gestation of pregnancy; Z37.0 Single live birth
CPT/HCPCS: 59025; 59050; 76815; 84112; 85025; 85461; 86850; 86900; 86901; 87081; 87491; 87591; 87653; 90384; 99218; J7120; A4216; G0378; J0290; J0702; J2790

== ENCOUNTER → 2020-02-02 | Outpatient (CLI) | payer MEDICAID, SELFPAY ==
[2019-12-27 12:59] VITALS: BMI 28.9
[2020-02-05 15:08] LABS: HPV HC, High Risk Negative (Negative); HPV Reflexed? YES, CHARGE PATIENT
== END | disposition home or self-care (01) ==
LOC: LABSPEC 16:49
PROVIDERS: Visit Provider Obstetrics & Gynecology
DX: R87.810 Cervical high risk human papillomavirus (HPV) DNA test positive (principal)
CPT/HCPCS: 87624; 88175; G0145